=== PATIENT | male | born 1980 | race Caucasian/White ===

== ENCOUNTER 2020-07-08 04:38 | Emergency (ER) | payer SELFPAY ==
[~2020-07-08] VITALS: Ht 172.7 cm; Wt 82.7 kg
--- NOTE | 2020-07-08 05:04 | NUR ---
pt came into ed due to right pointer finger pain. pt reports he slammed it in a cast metal cast register at work and since then had pain. pt states "i heard a pop and now its hurting even more". pt sitting up on gurney, at bedside, cms intact, bed in lowest. call light on lap, ice applied. wctm. rad at bs
[2020-07-08] MEDS ORDERED: HYDROcodone/APAP 5/325 TABLET ONE (05:13)
--- NOTE | 2020-07-08 05:21 | NUR ---
pt medicated per mar for pain, pt unable to sit still at this time d/t discomfort. wctm waiting for rad results
[2020-07-08] MEDS ORDERED: HYDROcodone/APAP 5/325 TABLET PO ONE (05:30)
[2020-07-08] MEDS ORDERED: LIDOCAINE-MPF 1%, 5ML ONE (06:22)
[2020-07-08] MEDS ORDERED: BUPIVACAINE 0.25% ONE (06:22)
[2020-07-08] MEDS ORDERED: KETOROLAC 30 MG/1 ML IM ONE (06:30)
[2020-07-08] MEDS ORDERED: LIDOCAINE-MPF 1%, 5ML INFIL ONE (06:30)
[2020-07-08] MEDS ORDERED: BUPIVACAINE/PF-EPI 0.25% 1:200K SQ ONE (06:30)
[2020-07-08] MEDS ORDERED: KETOROLAC 30 MG/1 ML ONE (06:41)
--- NOTE | 2020-07-08 06:48 | NUR ---
pt medicated per mar for pain, states meds are helping now. nad, denies additional questions or needs, to be dc'd. wctm.
[2020-07-08 06:51] VITALS: BP 115/78
--- NOTE | 2020-07-08 06:59 | NUR ---
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 pt states "i dont care i need to go now." tracy.
--- NOTE | 2020-07-08 07:02 | NUR ---
Patient/spouse given discharge instructions and they have confirmed that they understand the instructions. Patient ambulatory with steady gait. appears to be rushed to leave, nad, no personal belongings left in room at md.
== END 2020-07-08 07:04 | disposition home or self-care (01) ==
LOC: ED 06:37
DX: S60.021A Contusion of right index finger without damage to nail, initial encounter (principal); F17.210 Nicotine dependence, cigarettes, uncomplicated; X58.XXXA Exposure to other specified factors, initial encounter; Y93.89 Activity, other specified; Y92.89 Other specified places as the place of occurrence of the external cause; Y99.8 Other external cause status
CPT/HCPCS: 64450; 73130; 96372; 99284; J1885